=== PATIENT | female | born 1960 | race Caucasian/White ===

== ENCOUNTER 2017-06-10 04:03 | Emergency (ER) | payer BC ==
[2017-06-10] MEDS: KETOROLAC 30 MG INJ IM (06:43)
== END 2017-06-10 06:55 | disposition home or self-care (01) ==
LOC: FTE 04:03
DX: M25.512 Pain in left shoulder (principal); E11.9 Type 2 diabetes mellitus without complications; Z79.82 Long term (current) use of aspirin; Z79.84 Long term (current) use of oral hypoglycemic drugs
CPT/HCPCS: 96372; 99284-25

== ENCOUNTER 2018-04-11 14:05 | Emergency (ER) | payer BC ==
[2018-04-11] MEDS: LIDOCAINE 1% (MDV) 10 ML INJ INFIL (18:38)
== END 2018-04-11 19:22 | disposition home or self-care (01) ==
LOC: FTE 14:05
DX: L72.3 Sebaceous cyst (principal); E11.9 Type 2 diabetes mellitus without complications; Z79.82 Long term (current) use of aspirin; Z79.84 Long term (current) use of oral hypoglycemic drugs; Z87.891 Personal history of nicotine dependence
CPT/HCPCS: 10060; 99283-25